=== PATIENT | male | born 1995 | race African-American/Black ===

== ENCOUNTER → 2018-04-01 | Outpatient (REF) | LOC: M LAB 07:44 | PROVIDERS: ATTEND Nurse Practitioner Adult Health | DX: Z02.89 Encounter for other administrative examinations (principal) ==

== ENCOUNTER → 2018-04-23 | Outpatient (REF) | LOC: M LAB 15:31 | PROVIDERS: ATTEND Nurse Practitioner Adult Health | DX: Z02.89 Encounter for other administrative examinations (principal) ==